=== PATIENT | female | born 1965 | race Two or more races ===

== ENCOUNTER 2024-11-10 11:27 | Emergency (ER) | payer MEDICAID, SELFPAY ==
[2024-11-10 11:37] VITALS: BP 161/93; PULSE 85; RESP 16; TEMP 37.1; O2SAT 98; BMI 29.5
--- NOTE | 2024-11-10 11:41 | XR_ITS ---
Examination: Hand, right 3 views Technique: Hand AP, oblique, lateral 3 views Date and time of exam: November 10, 2024 1152 hours INDICATIONS: Patient fell 2 days ago with injury to the hand, hand pain FINDINGS: Moderate osteopenia No acute fracture No dislocation IMPRESSION: No acute fracture
--- NOTE | 2024-11-10 11:41 | XR_ITS ---
Examination: Knee, left , 3 views Technique: Knee AP, lateral, oblique 3 views Date and time of exam: November 10, 2024 1152 hours INDICATIONS: Injury to the knee today, knee pain. FINDINGS: Moderate osteopenia. No fracture or dislocation. Small knee effusion IMPRESSION: No fracture or dislocation
--- NOTE | 2024-11-10 11:41 | XR_ITS ---
Examination: Wrist, right 3 views Technique: Wrist AP, oblique, lateral 3 views Date and time of exam: November 10, 2024 at 1152 hours INDICATIONS: Patient fell 2 days ago with injury to the wrist, wrist pain. FINDINGS: Moderate osteopenia. No fracture or dislocation IMPRESSION: No fracture or dislocation
--- NOTE | 2024-11-10 12:46 | PD.EDFALL ---
ED Fall Injury RME/HPI General Chief Complaint: Fall Stated Complaint: Fall, right wrist and left knee Time Seen by Provider: 11/10/24 11:36 Arrival date/time: 11/10/24 11:27 58-year-old female presents to department today with complaint of ground-level fall today patient reports she fell while carrying food. Patient reports right wrist pain and left knee pain Limitations: no limitations Related Data Previous Rx's ?Medication ?Instructions ?Recorded hydrocodone 5 mg-acetaminophen 325 1 tab PO QID PRN pain #20 tabs 08/18/ mg tablet ibuprofen 600 mg tablet 600 mg PO Q6H #30 tabs 11/10/24 Allergies Allergy/AdvReac Type Severity Reaction Status Date / Time No Known Allergies Allergy Verified 11/10/24 11:31 Review of Systems Review of Systems Systems Reviewed: All systems reviewed, normal except as documented Constitutional Constitutional: Reports system reviewed and no additional complaints, except as documented, Denies fever(s) and Denies headache(s) Eyes Eyes: Reports system reviewed and no additional complaints, except as documented and Denies blurry vision ENT Ears, Nose, Mouth, and Throat: Reports system reviewed and no additional complaints, except as documented, Denies headache(s), Denies nasal congestion and Denies nasal discharge Cardiovascular Cardiovascular: Reports system reviewed and no additional complaints, except as documented, Denies chest pain and Denies dyspnea Respiratory Respiratory: Reports system reviewed and no additional complaints, except as documented, Denies chest congestion, Denies cough and Denies dyspnea Gastrointestinal Gastrointestinal: Reports system reviewed and no additional complaints, except as documented and Denies abdominal pain Musculoskeletal Musculoskeletal: Reports system reviewed and no additional complaints, except as documented, Reports arthralgias, Denies deformity and Reports joint swelling Integumentary/Breasts Skin/Breast: Reports system reviewed and no additional complaints, except as documented and Denies rash Neurologic Neurologic: Reports system reviewed and no additional complaints, except as documented, Reports as per HPI and Denies headache(s) Past Medical History Past Medical History NEUROLOGIC: Negative Neurological Disorders or Seizures CARDIAC: Positive Hypertension; Negative Cardiac Disorders or Congestive Heart Failure RESPIRATORY: Negative Chronic Obstructive Pulmonary Disease (COPD) or Asthma GASTROINTESTINAL: Negative Gastrointestinal Disorders GENITOURINARY: Negative Genitourinary Disorders or Renal Disease REPRODUCTIVE: Negative Breast Cancer or Pelvic Inflammatory Disease MUSCULOSKELETAL: Negative Musculoskeletal Disorders ENDOCRINE: Negative Endocrine Disorders, Diabetes Mellitus Type 1 or Diabetes Mellitus Type 2 HEMATOLOGIC: Negative Blood Disorders or Sickle Cell Disease OTHER HISTORY: Negative Hospitalization, Autoimmune Disease, Down Syndrome, Developmental Delay, Shingles, Falls, Blood Transfusions, Anesthesia Reactions, Chicken Pox, Measles, Mumps or Breast Cancer Family History FAMILY HISTORY: Negative Family Psychiatric Problems, Family Respiratory Disorders, Family Cardiac Disorders, Family Gastrointestinal Problems, Family Cancer, Family Surgery or Family Anesthesia Reaction Surgical History SURGICAL: Negative Cardiac Surgery, Endocrine Surgery, Ear Surgery, Abdominal Surgery, Nephrectomy, Joint Replacement, Neurologic Surgery or Mastectomy Social History SMOKING STATUS: Never smoker ED Exam General Limitations: Present no limitations General appearance: Present alert and in no apparent distress Head Head exam: Present atraumatic, normocephalic and normal inspection Eye Eye exam: Present normal appearance, PERRL and EOMI ENT ENT exam: Present normal exam, normal oropharynx and mucous membranes moist Neck Neck exam: Present normal inspection, full ROM and trachea midline Chest Chest inspection: Present normal inspection and symmetric chest wall rise Respiratory Respiratory exam: Present normal lung sounds bilaterally Cardiovascular Cardiovascular exam: Present regular rate, normal rhythm and normal heart sounds Abdominal Exam Abdominal exam: Present soft and normal bowel sounds; Absent distention Extremities Exam Extremities exam: Present full ROM, tenderness, normal capillary refill and other (Right wrist pain, left knee pain); Absent joint swelling Back Exam Back exam: Present normal inspection and full ROM Neurological Exam Neurological exam: Present alert, oriented X3 and CN II-XII intact Psychiatric Psychiatric exam: Present normal affect and normal mood Skin Skin exam: Present warm, dry, intact and normal color Course Quality Measures none Orders Category Date Time Status XR hand comp RT min 3V Stat Exams 11/10/24 11:41 Completed XR knee LT 3V Stat Exams 11/10/24 11:41 Completed XR wrist comp RT min 3V Stat Exams 11/10/24 11:41 Completed Vital Signs Vital signs: Vital Signs Temperature 98.8 F 11/10/24 11:37 Pulse Rate 85 11/10/24 11:37 Respiratory Rate 16 11/10/24 11:37 Blood Pressure 161/93 H 11/10/24 11:37 Pulse Oximetry (%) 98 11/10/24 11:37 Oxygen Delivery Method Room Air 11/10/24 11:37 O2 saturation 98% room air within normal limits Fall MDM Narrative MDM Narrative:: 58-year-old female presents to department today with complaint of ground-level fall today patient reports she fell while carrying food. Patient reports right wrist pain and left knee pain On exam patient well-appearing patient does not appear ill or toxic in no acute distress Imaging obtained no acute emergent finding Patient walks with steady gait Patient discharged home in no distress to follow-up with primary care doctor in the next 24 to 48 hours and for any worsening symptoms to return to the ER immediately Patient data External records reviewed:: [facility] previous records Clinical information provided by:: patient Social determinants that could affect healthcare access:: none Patient has the following chronic illnesses:: None How is presenting disease/condition affected by chronic disease/condition?: no chronic disease Evaluation data The following diagnostics were reviewed and interpreted by me:: radiology exam(s) Lab and/or radiology exams considered but not ordered:: Radiology obtain Interpretation Summary: Reviewed by me Medications / Prescriptions Medications or Prescriptions considered but not ordered:: Given Medication administrations:: Given Consultations Consultation(s) initiated? (list below): No Diagnosis Fall Differential Diagnosis: other (Wrist pain, wrist fracture, knee sprain, knee fracture) Most likely diagnosis given after review of the tests above:: Knee sprain, wrist sprain Admission Indicated Admission indicated?: not indicated Admission Request Was there a request for admission?: No Disposition Plan Disposition Plan: Discharge Discharge Attestation Discharge Attestation: The patient and all family members were given an opportunity to ask questions and understood the discharge instructions. Discharge instructions specifically effects, indications for sooner follow up or return to the emergency department, and the expected course of current diagnosis. Patient condition: Stable Discharge Plan Plan Patient Disposition: HOME (Self Care) Discharge Disposition comment: stable Prescriptions/Referrals Prescriptions/Med Rec: New ibuprofen 600 mg tablet 600 mg PO Q6H Qty: 30 0RF No Action hydrocodone-acetaminophen 5-325 mg tablet 1 tab PO QID MDD 4 PRN (Reason: pain) Qty: 20 0RF Referrals: Juju Medellin FNP [Primary Care Provider] - 11/13/24 Problem List Clinical Impression: Knee pain, left, Right wrist pain Patient/Caregiver Discharge Instructions Education Materials: ED Arthralgia Additional Instructions: Please follow up with your primary care doctor in the next 24-48hrs for any worsening symptoms return here immediately Print Language: Divehi Stand Alone Forms: Merari Award Info., Patient Portal Info Letter HERNAN/ORTIZ Supervising Physician HERNAN/CLOTH [employer] Supervising Physician: Dr gomez
== END 2024-11-10 15:18 | disposition home or self-care (01) ==
PROVIDERS: Emergency Provider Emergency Medicine; PCP Nurse Practitioner Family
DX: S69.91XA Unspecified injury of right wrist, hand and finger(s), initial encounter (principal); S89.92XA Unspecified injury of left lower leg, initial encounter; W18.30XA Fall on same level, unspecified, initial encounter
CPT/HCPCS: 73110; 73130; 73562; 99283